=== PATIENT | female | born 1995 | race Caucasian/White ===

== ENCOUNTER 2022-05-27 08:21 | Inpatient (IN) | payer BC ==
[2022-05-27] MEDS ORDERED: Water For Irrigation,Sterile 1,000 ML Container IRR PRN (10:23)
[2022-05-27] MEDS ORDERED: Carboprost Tromethamine 250 MCG/1 ML Amp IM PRN (10:23)
[2022-05-27] MEDS ORDERED: Misoprostol 200 MCG Tab PO PRN (10:23)
[2022-05-27] MEDS ORDERED: Methylergonovine 0.2 MG/1 ML Amp IM PRN (10:23)
[2022-05-27] MEDS ORDERED: Butorphanol 1 MG/ML SDV IVPUSH PRN (10:23)
[2022-05-27] MEDS ORDERED: Sodium Chloride 0.9% 10 ML Syringe FLUSH PRN (10:23)
[2022-05-27] MEDS ORDERED: Sodium Chloride 0.9% 20 ML SDV IV PRN (10:23)
[2022-05-27] MEDS ORDERED: Tranexamic Acid 1,000 MG in Sodium Chloride 0.9% 100 ML IV PRN (10:23)
[2022-05-27] MEDS ORDERED: Sodium Chloride 0.9% 2.5 ML Syringe FLUSH PRN (10:23)
[2022-05-27] MEDS ORDERED: Lidocaine 1% 50 ML MDV INJECT PRN (10:23)
[2022-05-27] MEDS ORDERED: Oxytocin/0.9 % Sodium Chloride 30 UNIT/500 ML BAG IV SCH ×2 (10:30→13:45)
[2022-05-27] MEDS: Lactated Ringers 1,000 ML IV SCH ×3 (12:00→20:36)
[2022-05-27] MEDS ORDERED: Terbutaline 1 MG/ML SDV SUBCUT PRN (13:34)
[2022-05-27] MEDS ORDERED: Ropivacaine/PF 400 MG/200 ML PCA ONE (20:08)
[2022-05-27] MEDS ORDERED: ePHEDrine 50 MG/ML SDV IVPUSH PRN (20:23)
[2022-05-27] MEDS ORDERED: Phenylephrine HCl In 0.9% NaCl 1 MG/10 ML Vial IVPUSH SCH (20:30)
[2022-05-27] MEDS ORDERED: Ropivacaine HCl/PF 400 MG in Premix Bag 1 BAG EPIDUR SCH (20:30)
[2022-05-28] MEDS ORDERED: Phenylephrine HCl In 0.9% NaCl 1 MG/10 ML Vial ONE (02:19)
[2022-05-28] MEDS: Lactated Ringers 1,000 ML IV SCH (02:36)
[2022-05-28] MEDS ORDERED: Acetaminophen 500 MG Tab PO PRN (03:35)
[2022-05-28] MEDS ORDERED: Lanolin 100% Cream 7 GM Tube TOP PRN (03:35)
[2022-05-28] MEDS ORDERED: Witch Hazel Medicated Pads 40/Jar TOP PRN (03:35)
[2022-05-28] MEDS ORDERED: Bisacodyl 10 MG Supp RECTAL PRN (03:35)
[2022-05-28] MEDS ORDERED: Tranexamic Acid 1,000 MG in Sodium Chloride 0.9% 100 ML IV PRN (03:35)
[2022-05-28] MEDS ORDERED: Ibuprofen 400 MG Tab PO PRN (03:35)
[2022-05-28] MEDS ORDERED: Methylergonovine 0.2 MG/1 ML Amp IM PRN (03:35)
[2022-05-28] MEDS ORDERED: Benzocaine/Menthol 20%-0.5% Spray 78 GM Cannister TOP PRN (03:35)
[2022-05-28] MEDS: Ibuprofen 800 MG Tab PO PRN ×2 (05:41→17:01)
[2022-05-28] MEDS: Acetaminophen 500 MG Tab PO PRN ×3 (05:42→17:01)
[2022-05-28] MEDS: Docusate Sodium 100 MG Cap PO PRN (17:01)
[2022-05-29] MEDS: Ibuprofen 800 MG Tab PO PRN (06:42)
[2022-05-29] MEDS: Docusate Sodium 100 MG Cap PO PRN (15:28)
== END 2022-05-29 18:05 | disposition home or self-care (01) | DRG 560 ==
LOC: MW.OBCHECK 08:21 → MW.OB 08:22 → MW.OBCHECK 10:23 → MW.OB 10:24 → OBSVTOIN 05-28 03:02 → MW.OB 05-28 05:48
PROVIDERS: ADMIT Obstetrics & Gynecology; ATTEND Obstetrics & Gynecology
PROC: 10D07Z6 Extraction of Products of Conception, Vacuum, Via Natural or Artificial Opening (ICD-10-PCS; principal; 2022-05-28)
PROC: 3E0R3BZ Introduction of Anesthetic Agent into Spinal Canal, Percutaneous Approach (ICD-10-PCS; 2022-05-28)
PROC: 10907ZC Drainage of Amniotic Fluid, Therapeutic from Products of Conception, Via Natural or Artificial Opening (ICD-10-PCS; 2022-05-28)
PROC: 0HQ9XZZ Repair Perineum Skin, External Approach (ICD-10-PCS; 2022-05-28)
PROC: 3E033VJ Introduction of Other Hormone into Peripheral Vein, Percutaneous Approach (ICD-10-PCS; 2022-05-28)
DX: O98.52 Other viral diseases complicating childbirth (principal); U07.1 COVID-19; Z3A.40 40 weeks gestation of pregnancy; Z37.0 Single live birth; O70.0 First degree perineal laceration during delivery; O69.81X0 Labor and delivery complicated by cord around neck, without compression, not applicable or unspecified
CPT/HCPCS: 01967; 36415; 51702; 59025; 59409; 82803; 84112; 85014; 85018; 85027; 86592; 86850; 86900; 86901; A9270-GY; J2590; J2795; J7120; U0002